=== PATIENT | female | born 1960 | race Caucasian/White ===

== ENCOUNTER 2016-09-08 03:50 | Emergency (ER) | payer SELFPAY ==
[2016-09-08 03:50] VITALS: BMI 28.3
--- NOTE | 2016-09-08 04:14 | ED PDOC ---
Arrival/HPI - General Time Seen by Provider: 09/08/16 04:10 Historian: Patient, Family (Daughter) - History of Present Illness Narrative History of Present Illness (Text): 09/08/16 04:13 Radha Cohen is a 56 year old female, whose past medical history includes colon cancer and colostomy with reversal, who presents to the Emergency department complaining of intermittent mid-sternal chest pain. Daughter states patient has also been experiencing associated lower abdominal discomfort/bloating and diarrhea for the past few months, but has worsened over the last few days. Patient denies any fever, chills, shortness of breath, nausea, vomiting, back pain, neck pain, headache, dizziness, or any other complaints. Symptom Onset: Gradual Symptom Course: Unchanged Activities at Onset: Light Context: Home Past Medical History - Provider Review Nursing Documentation Reviewed: Yes - Infectious Disease Hx of Infectious Diseases: None - Tetanus Immunization Tetanus Immunization: Unknown - Cardiac Hx Cardiac Disorders: No - Pulmonary Hx Respiratory Disorders: No - Neurological Hx Neurological Disorder: No - HEENT Hx HEENT Disorder: No - Renal Hx Renal Disorder: No - Endocrine/Metabolic Hx Hypothyroidism: Yes - Hematological/Oncological Hx Blood Disorders: No - Integumentary Hx Dermatological Disorder: No - Musculoskeletal/Rheumatological Hx Musculoskeletal Disorders: No - Gastrointestinal Hx Diverticulitis: Yes Other/Comment: Colostomy reversal - Genitourinary/Gynecological Hx Genitourinary Disorders: No - Psychiatric Hx Depression: No Hx Emotional Abuse: No Hx Physical Abuse: No Hx Substance Use: No - Surgical History Other/Comment: Colostomy reversal - Anesthesia Hx Anesthesia: Yes Hx Anesthesia Reactions: No Hx Malignant Hyperthermia: No - Suicidal Assessment Feels Threatened In Home Enviroment: No Family/Social History - Physician Review Nursing Documentation Reviewed: Yes Family/Social History: No Known Family HX Smoking Status: Never Smoked Hx Alcohol Use: No Hx Substance Use: No Hx Substance Use Treatment: No Allergies/Home Meds Allergies/Adverse Reactions: Allergies No Known Allergies Allergy (Verified 04/21/16 05:05) Home Medications: Home Meds Medication Instructions Recorded Confirmed Atropine/Diphenoxylate [Lomotil 1 tab PO QID 04/21/16 04/21/16 0.025-2.5 mg tablet] Levothyroxine [Levoxyl] 0.025 mg PO DAILY 04/21/16 04/21/16 Review of Systems - Physician Review All systems were reviewed & negative as marked: Yes - Review of Systems Constitutional: Normal. absent: Fevers Eyes: Normal ENT: Normal Respiratory: Normal Cardiovascular: Chest Pain Gastrointestinal: Abdominal Pain, Diarrhea Genitourinary Female: Normal Musculoskeletal: Normal. absent: Back Pain, Neck Pain Skin: Normal. absent: Rash Neurological: Normal. absent: Headache, Dizziness Endocrine: Normal Hemo/Lymphatic: Normal Psychiatric: Normal Physical Exam Vital Signs Reviewed: Yes Vital Signs Temp Pulse Resp BP Pulse Ox 09/08/16 06:02 98.6 F 75 16 117/66 100 Temperature: Afebrile Blood Pressure: Normal Pulse: Regular Respiratory Rate: Normal Appearance: Positive for: Well-Appearing, Non-Toxic, Comfortable Pain Distress: None Mental Status: Positive for: Alert and Oriented X 3 - Systems Exam Head: Present: Atraumatic, Normocephalic Pupils: Present: PERRL Extroacular Muscles: Present: EOMI Conjunctiva: Present: Normal Mouth: Present: Moist Mucous Membranes Neck: Present: Normal Range of Motion Respiratory/Chest: Present: Clear to Auscultation, Good Air Exchange. No: Respiratory Distress, Accessory Muscle Use Cardiovascular: Present: Regular Rate and Rhythm, Normal S1, S2. No: Murmurs Abdomen: Present: Tenderness (Lower abdominal discomfort), Normal Bowel Sounds. No: Distention, Peritoneal Signs Back: Present: Normal Inspection Upper Extremity: Present: Normal Inspection. No: Cyanosis, Edema Lower Extremity: Present: Normal Inspection. No: Edema Neurological: Present: GCS=15, CN II-XII Intact, Speech Normal Skin: Present: Warm, Dry, Normal Color. No: Rashes Psychiatric: Present: Alert, Oriented x 3, Normal Insight, Normal Concentration Medical Decision Making ED Course and Treatment: 09/08/16 04:14 Impression: 56 year old female complaining of chest pain, lower abdominal discomfort, and diarrhea. Plan: -- CT Abdomen and Pelvis with IV contrast -- EKG -- Chest X-ray -- Labs, cardiac enzymes -- Urinalysis -- Reassess and disposition Prior Visits: Notes and results from previous visits were reviewed. Progress Notes: Reviewed EKG, NSR at [address]-segment elevations or depressions, no T-wave inversions, normal intervals. 09/08/16 06:01 Reviewed Chest X-ray, shows no acute processes. 09/08/16 07:[address] Barnard, pending labs, CT scan, re-evaluation, and final disposition. - Lab Interpretations Lab Results: 09/08/16 05:52 09/08/16 05:52 Lab Results 09/08/16 05:52: WBC 6.3, RBC 4.32, Hgb 10.0 L, Hct 32.9 L, MCV 76.2 L, MCH 23.1 L, MCHC 30.4 L, RDW 15.0 H, Plt Count 357, MPV 9.3 09/08/16 05:52: Sodium 142, Potassium 3.8, Chloride 105, Carbon Dioxide 30, Anion Gap 11, BUN 11, Creatinine 0.7, Est GFR ( Amer) > 60, Est GFR (Non- Af Amer) > 60, Random Glucose 96, Calcium 9.4, Total Bilirubin 0.2, AST 29, ALT 33, Alkaline Phosphatase 56, Lactate Dehydrogenase 300 L, Total Creatine Kinase 55, Troponin I < 0.01, Total Protein 7.5, Albumin 3.8, Globulin 3.8, Albumin/ Globulin Ratio 1.0 L 09/08/16 05:52: PT 10.4, INR 0.96, APTT 27.5 09/08/16 04:17: Urine Color Yellow, Urine Appearance Clear, Urine pH 6.0, Ur Specific [place] 1.020, Urine Protein Trace H, Urine Glucose (UA) Negative, Urine Ketones Trace H, Urine Blood Negative, Urine Nitrate Negative, Urine Bilirubin Negative, Urine Urobilinogen 0.2, Ur Leukocyte Esterase Trace H, Urine RBC 0 - 2, Urine WBC 2 - 5, Ur Epithelial Cells 1 - 3, Urine Bacteria Rare - RAD Interpretation Radiology Orders: 09/08/16 04:16 CHEST PORTABLE [RAD] Stat 09/08/16 04:17 ABD & PELVIS IV CONTRAST ONLY [CT] Stat - Medication Orders Current Medication Orders: Discontinued Medications Iohexol (Omnipaque 350 100 Ml) Confirm Administered Dose 350 mg .ROUTE .STK-MED ONE Stop: 09/08/16 06:38 - Scribe Statement The provider has reviewed the documentation as recorded by the Scribe Dena Corbett All medical record entries made by the Scribe were at my direction and personally dictated by me. I have reviewed the chart and agree that the record accurately reflects my personal performance of the history, physical exam, medical decision making, and the department course for this patient. I have also personally directed, reviewed, and agree with the discharge instructions and disposition. Disposition/Present on Arrival - Present on Arrival Any Indicators Present on Arrival: No History of DVT/PE: No History of Uncontrolled Diabetes: No Urinary Catheter: No History Surgical Site Infection Following: None - Disposition Have Diagnosis and Disposition been Completed?: No Diagnosis: Chest pain, Abdominal pain Disposition Time: 07:00 Condition: STABLE Discharge Instructions (ExitCare): Chest Pain (ED)
[2016-09-08 04:57] LABS: URINE BILIRUBIN NEGATIVE (NEGATIVE); URINE BLOOD NEGATIVE (NEGATIVE); URINE GLUCOSE (UA) NEGATIVE (NEGATIVE); URINE KETONE TRACE mg/dL (NEGATIVE); URINE LEUKOCYTE ESTERASE TRACE Leu/uL (NEGATIVE); URINE PROTEIN TRACE mg/dL (<30 mg/dL); URINE UROBILINOGEN 0.2 E.U./dL (<1 E.U./dL)
[2016-09-08 04:58] LABS: URINE APPEARANCE CLEAR (CLEAR); URINE COLOR YELLOW (YELLOW)
[2016-09-08 05:11] LABS: URINE BACTERIA RARE (NEG); URINE RBC 0 - 2 /hpf (0-2)
[2016-09-08 06:04] VITALS: TEMP 98.6
[2016-09-08 06:14] LABS: INR 0.96 (0.93-1.08); PARTIAL THROMBOPLASTIN TIME 27.5 Seconds (23.7-30.8)
[2016-09-08 06:16] LABS: HEMATOCRIT 32.9 % (36.0-48.0); MEAN CELL VOLUME 76.2 fL (80.0-105.0); MEAN CORPUSCULAR HEMOGLOBIN 23.1 pg (25.0-35.0); MEAN CORPUSCULAR HGB CONC 30.4 g/dl (31.0-37.0); MEAN PLATELET VOLUME 9.3 fl (7.0-11.0); WHITE BLOOD COUNT 6.3 10^3/ul (4.5-11.0)
[2016-09-08 06:20] LABS: ALKALINE PHOSPHATASE 56 U/L (38-133); ALT/SGPT 33 U/L (7-56); AST/SGOT 29 U/L (15-39); BILIRUBIN,TOTAL 0.2 mg/dL (0.2-1.3); BLOOD UREA NITROGEN 11 mg/dL (7-21); CALCIUM 9.4 mg/dL (8.4-10.5); CARBON DIOXIDE 30 mmol/L (21-33); CHLORIDE 105 mmol/L (98-107); GFR AFRICAN-AMERICAN > 60; GLUCOSE,RANDOM 96 mg/dL (70-110); POTASSIUM 3.8 mmol/L (3.6-5.0); SODIUM 142 mmol/L (132-148); TOTAL PROTEIN 7.5 g/dL (5.8-8.3)
[2016-09-08] MEDS ORDERED: Iohexol 350 MG/100 ML VIAL ONE (06:37)
[2016-09-08 06:43] LABS: TROPONIN I < 0.01 ng/mL
[2016-09-08] MEDS ORDERED: Morphine 2 mg/ml ISec IVP STA (06:50)
[2016-09-08] MEDS ORDERED: Sodium Chloride 0.9% 1,000 ML IV SCH (07:00)
[2016-09-08 07:55] VITALS: RESP 18
--- NOTE | 2016-09-08 08:29 | CT ---
PROCEDURE: CT Abdomen and Pelvis with contrast HISTORY: Lower abdominal pain COMPARISON: None. TECHNIQUE: CT scan of the abdomen and pelvis was performed after intravenous administration of contrast. Oral contrast was not administered. Coronal and sagittal reformatted images were obtained. Contrast dose: 100 mL Omnipaque 350 Radiation dose: Total exam DLP = 1125.44 mGy-cm. This CT exam was performed using one or more of the following dose reduction techniques: Automated exposure control, adjustment of the mA and/or kV according to patient size, and/or use of iterative reconstruction technique. FINDINGS: LOWER THORAX: There is linear atelectasis/scarring in the inferior right middle lobe, lingula, and lateral right lung base. The posterior lung bases are clear. LIVER: The liver is normal in size and there is homogeneous enhancement without intrahepatic biliary ductal dilatation. No focal mass. GALLBLADDER AND BILE DUCTS: The gallbladder is contracted. No calcified gallstones. PANCREAS: The pancreas is normal in size and there is homogeneous enhancement without ductal dilatation. SPLEEN: The spleen is normal in size and there is homogeneous enhancement without focal mass. ADRENALS: The right adrenal gland is normal in size without discrete nodule. There is mild thickening of the left adrenal gland. No discrete nodule. KIDNEYS AND URETERS: Both kidneys are normal in size and there is homogeneous enhancement without hydronephrosis or focal mass. VASCULATURE: No aortic aneurysm. BOWEL: The patient is status post subtotal colectomy. There are a running sutures in moderately distended bowel loops in the left lower quadrant and right hemipelvis with fecal retention. There is also fecal retention in the rectum and a running suture at the rectosigmoid junction. The small bowel loops are normal in caliber. APPENDIX: Surgically absent. PERITONEUM: No free fluid. No free air. LYMPH NODES: No enlarged lymph nodes. BLADDER: Unremarkable. REPRODUCTIVE: Unremarkable. BONES: No acute fracture. OTHER FINDINGS: None. IMPRESSION: Status post subtotal colectomy, postsurgical changes in the bowel and moderate distention of bowel loops in the left lower quadrant and right hemipelvis with fecal retention as well as fecal retention in the rectum. These bowel loops likely represent residual: . Small bowel loops are normal in caliber. No evidence of small bowel bowel obstruction.
--- NOTE | 2016-09-08 08:52 | ED PDOC ---
Physical Exam Vital Signs Temp Pulse Resp BP Pulse Ox 09/08/16 07:54 71 18 118/82 100 09/08/16 06:02 98.6 F 75 16 117/66 100 Medical Decision Making ED Course and Treatment: 09/08/16 07:00 Case signed out to me by Dr. Roland pending labs, CT scan, re-evaluation, and final disposition. PROCEDURE: CT Abdomen and Pelvis with contrast [employer]nc Field Service Engineer : Barby Ramey MD Report Date : 09/08/2016 08:27:40 IMPRESSION: Status post subtotal colectomy, postsurgical changes in the bowel and moderate distention of bowel loops in the left lower quadrant and right hemipelvis with fecal retention as well as fecal retention in the rectum. These bowel loops likely represent residual: . Small bowel loops are normal in caliber. No evidence of small bowel bowel obstruction. 09/08/16 08:47 Patient reassessed. She states she feels well. Offered patient observation for chest pain, but patient declined. CT shows fecal retention. Patient states she was on Lomotil by PMD. Advised to discontinue it. Instructed patient to follow up outpatient. - Lab Interpretations Lab Results: 09/08/16 05:52 09/08/16 05:52 Lab Results 09/08/16 05:52: WBC 6.3, RBC 4.32, Hgb 10.0 L, Hct 32.9 L, MCV 76.2 L, MCH 23.1 L, MCHC 30.4 L, RDW 15.0 H, Plt Count 357, MPV 9.3 09/08/16 05:52: Sodium 142, Potassium 3.8, Chloride 105, Carbon Dioxide 30, Anion Gap 11, BUN 11, Creatinine 0.7, Est GFR ( Amer) > 60, Est GFR (Non- Af Amer) > 60, Random Glucose 96, Calcium 9.4, Total Bilirubin 0.2, AST 29, ALT 33, Alkaline Phosphatase 56, Lactate Dehydrogenase 300 L, Total Creatine Kinase 55, Troponin I < 0.01, Total Protein 7.5, Albumin 3.8, Globulin 3.8, Albumin/ Globulin Ratio 1.0 L 09/08/16 05:52: PT 10.4, INR 0.96, APTT 27.5 09/08/16 04:17: Urine Color Yellow, Urine Appearance Clear, Urine pH 6.0, Ur Specific [place] 1.020, Urine Protein Trace H, Urine Glucose (UA) Negative, Urine Ketones Trace H, Urine Blood Negative, Urine Nitrate Negative, Urine Bilirubin Negative, Urine Urobilinogen 0.2, Ur Leukocyte Esterase Trace H, Urine RBC 0 - 2, Urine WBC 2 - 5, Ur Epithelial Cells 1 - 3, Urine Bacteria Rare - RAD Interpretation Radiology Orders: 09/08/16 04:16 CHEST PORTABLE [RAD] Stat 09/08/16 04:17 ABD & PELVIS IV CONTRAST ONLY [CT] Stat Faculty Administrator: Radiologist - Medication Orders Current Medication Orders: Sodium Chloride (Sodium Chloride 0.9%) 1,000 mls @ 100 mls/hr IV .Q10H GIOVANNA Last Admin: 09/08/16 08:15 Dose: 100 mls/hr Discontinued Medications Iohexol (Omnipaque 350 100 Ml) Confirm Administered Dose 350 mg .ROUTE .STK-MED ONE Stop: 09/08/16 06:38 Morphine Sulfate (Morphine) 2 mg IVP STAT STA Stop: 09/08/16 06:51 Last Admin: 09/08/16 08:15 Dose: 2 mg Disposition/Present on Arrival - Present on Arrival Any Indicators Present on Arrival: No History of DVT/PE: No History of Uncontrolled Diabetes: No Urinary Catheter: No History of Decub. Ulcer: No History Surgical Site Infection Following: None - Disposition Have Diagnosis and Disposition been Completed?: Yes Diagnosis: Chest pain, Abdominal pain Disposition: HOME/ ROUTINE Disposition Time: 09:30 Condition: STABLE Discharge Instructions (ExitCare): Chest Pain (ED), Acute Abdominal Pain (ED) Additional Instructions: please follow up with your doctor. return to er with worsening symptoms or concerns. Referrals: Nithya Doherty MD [Staff Provider] - Follow up with primary Franck Javed MD [Staff Provider] - Follow up with primary
[2016-09-08 09:13] VITALS: BP 127/76; PULSE 67; O2SAT 99
--- NOTE | 2016-09-08 09:50 | RAD ---
HISTORY: pain COMPARISON: No prior. FINDINGS: LUNGS: The lungs are well inflated and clear. PLEURA: No significant pleural effusion identified, no pneumothorax apparent. CARDIOVASCULAR: Normal. OSSEOUS STRUCTURES: No significant abnormalities. VISUALIZED UPPER ABDOMEN: Normal. OTHER FINDINGS: None. IMPRESSION: No active pulmonary disease.
--- NOTE | 2016-09-09 18:03 | CARD ---
APPROVED REPORT EKG Measurement Heart [id number] <Conclusion> Normal sinus rhythm Normal ECG
--- NOTE | 2016-09-09 18:03 | CARD ---
APPROVED REPORT EKG Measurement Heart [id number] <Conclusion> Normal sinus rhythm Normal ECG
== END 2016-09-08 09:13 | disposition home or self-care (01) ==
LOC: ED 03:50
DX: R07.9 Chest pain, unspecified (principal); R10.9 Unspecified abdominal pain; Z85.038 Personal history of other malignant neoplasm of large intestine; Z93.3 Colostomy status
CPT/HCPCS: 71010; 74177; 80053; 81001; 82550; 83615; 84484; 85027; 85610; 85730; 87086; 93005; 96374; 99284; J2270; J7040; Q9967

== ENCOUNTER 2017-09-19 12:41 | Emergency (ER) | payer OTHER ==
[2017-09-19 12:42] VITALS: BMI 28.3
[2017-09-19 12:58] VITALS: TEMP 98.8
[2017-09-19] MEDS ORDERED: Oxycodone/Acetaminophen 5/325 mg Tab PO STA (13:02)
[2017-09-19] MEDS ORDERED: TDAP Vaccine 0.5 mL Syr IM ONE (13:02)
--- NOTE | 2017-09-19 13:11 | ED PDOC ---
Arrival/HPI - General Chief Complaint: Trauma Time Seen by Provider: 09/19/17 13:00 Historian: Patient, Family (daughter at bedside, translating) EM Caveat: Language Barrier - History of Present Illness Narrative History of Present Illness (Text): 09/19/17 13:06 pt p/w + accidental trip and fall earlier this morning, prior to Emergency department arrival; pt states no LOC pre/post fall, + severe left arm/leg pain post fall; pt states she felt dizzy after she fell, pt was able to stand up with assistance; pt is able to stand and walk after she fell; pt states she cant move her left arm due to severe pain; pt states no fever/chills/sweats, no cp/sob/palpitations, no abd pain, no n/v, no numbness/tingling, no urinary/ bowel changes, no gross bleeding, no sick contact, no travel; pt is here for further eval; pt's without other complaints. PCP: [place] pt is right hand dominate tetanus immunization: unknown Time/Duration: Prior to Arrival Symptom Onset: Sudden Quality: Tightness, Cramping Severity Level: Severe Activities at Onset: Other (walking on the street) Context: Walking Past Medical History - Provider Review Nursing Documentation Reviewed: Yes - Travel History Have you recently traveled outside [place] w/in the past 3 mons?: No - Past History Past History: Non-Contributing - Infectious Disease Hx of Infectious Diseases: None - Tetanus Immunization Tetanus Immunization: Unknown - Reproductive Menopause: Yes Currently : No - Cardiac Hx Cardiac Disorders: No - Pulmonary Hx Respiratory Disorders: No - Neurological Hx Neurological Disorder: No - HEENT Hx HEENT Disorder: No - Renal Hx Renal Disorder: No - Endocrine/Metabolic Hx Hypothyroidism: Yes - Hematological/Oncological Hx Blood Disorders: No - Integumentary Hx Dermatological Disorder: No - Musculoskeletal/Rheumatological Hx Musculoskeletal Disorders: No - Gastrointestinal Hx Diverticulitis: Yes Other/Comment: Colostomy reversal - Genitourinary/Gynecological Hx Genitourinary Disorders: No - Psychiatric Hx Depression: No Hx Emotional Abuse: No Hx Physical Abuse: No Hx Substance Use: No - Surgical History Other/Comment: Colostomy reversal - Anesthesia Hx Anesthesia: Yes Hx Anesthesia Reactions: No Hx Malignant Hyperthermia: No - Suicidal Assessment Feels Threatened In Home Enviroment: No Family/Social History - Physician Review Nursing Documentation Reviewed: Yes Family/Social History: No Known Family HX Smoking Status: Never Smoked Hx Alcohol Use: No Hx Substance Use: No Hx Substance Use Treatment: No Allergies/Home Meds Allergies/Adverse Reactions: Allergies No Known Allergies Allergy (Verified 09/19/17 12:50) Home Medications: Home Meds Medication Instructions Recorded Confirmed Atropine/Diphenoxylate [Lomotil 1 tab PO QID 04/21/16 04/21/16 0.025-2.5 mg tablet] Levothyroxine [Levoxyl] 0.025 mg PO DAILY 04/21/16 04/21/16 Review of Systems - Review of Systems Constitutional: Normal Eyes: Normal ENT: Normal Respiratory: Normal Cardiovascular: Normal Gastrointestinal: Normal Genitourinary Female: Normal Musculoskeletal: Other (left shoulder/arm pain). absent: Arthralgias, Back Pain , Neck Pain, Joint Swelling Skin: Normal Neurological: Normal. absent: Headache Endocrine: Normal Hemo/Lymphatic: Normal Psychiatric: Normal Physical Exam - Physical Exam Narrative Physical Exam (Text): 09/19/17 13:12 General: alert/awake, GCS = 15, oriented x 3, resting in bed, uncomfortable, cooperative, interactive; mild-moderate distress due to pain Head: NC/AT EYE: PERRLA, EOMI, sclera anicteric, no nystagmus, no photophobia; visual field intact b/l Facial: WNL Oral: uvula/tongue are midline, no exudate/lesions, no drooling/stridor, no dysphonia; fair dentitions, moist oral mucosa NECK: intact ROM, no midline tenderness, no nuchal rigidity, no meningeal signs ; no step off; no gross deformities Chest: CTA b/l, no w/r/r; no tachypenia, no accessory muscle use noted Cardiac: +S1, +S2, no m/r/r, no tachycardia Abdominal: +BS, soft/nd/nt, well nourished/obese patient; no masses/rebound/ guarding/rigidity; no contreras's sign, no mcburney's point tenderness Extremities: decr ROM to left arm/shoulder, intact ROM to rest of the limbs, strength 5/5 grossly intact in all limbs, neurovasc intact b/l; + ambulatory; reflex +2/2; no gross swelling/pitting edema noted b/l, + left lateral anterior knee skin abrasions noted 0.5cmx0.5cm, no gross bleeding noted, no lacerations noted BACK: no step off, no midline tenderness, NO crepitus, no gross deformities noted; Intact ROM SKIN: cap refill < 1 sec, no ulcerations, no petechiae, no rashes; no gross pallor noted; as described above skin abrasion to left anterior lateral knee NEURO: CNII-XII WNL, no facial asymmetries, no slurr speech, oriented x 3 NIH stroke scale ~ 0 Psych: normal insight, normal affect; follows command with ease Vital Signs Reviewed: Yes Vital Signs Temp Pulse Resp BP Pulse Ox 09/19/17 12:53 98.8 F 78 17 120/65 98 Temperature: Afebrile Blood Pressure: Normal Pulse: Regular Respiratory Rate: Normal Appearance: Positive for: Well-Appearing, Uncomfortable. No: Non-Toxic, Comfortable, Ill-Appearing Pain Distress: Moderate Mental Status: Positive for: Alert and Oriented X 3 - Systems Exam Head: Present: Atraumatic, Normocephalic Medical Decision Making ED Course and Treatment: 09/19/17 13:04 Impression: fall, left arm pain, left knee pain, left chest wall pain i have consider all the differential diagnosis regarding pt's chief medical complaints/clinical findings, including but are not limited to: r/o fx A/P: fall, left arm/leg/chest pain - xray - RICE txt - sling - supportive care - observe/reevaluation 09/19/17 14:15 pt is resting in bed, NAD pt remained somewhat uncomfortable [address] Sahni, correctional case records supervisor ortho, would like CT upper left shoulder prior to d/c would like RICE precautions and Sling for patient pt can follow up on thursday in his office 09/19/17 15:51 pt remained comfortable NAD pt/family are made aware of her medical results RICE txt is recommended pt is encouraged wearing the left shoulder sling, no heavy lifting pt will f/u with Dr Sahni on thursday pt is encouraged outpt f/u pt will be discharged home Re-evaluation Time: 14:15 Reassessment Condition: Improving,but remains with symptoms - RAD Interpretation Narrative RAD Interpretations (Text): 09/19/17 14:31 PROCEDURE: Radiographs of the Left Shoulder HISTORY: fall, left shoulder/arm pain COMPARISON: No prior. FINDINGS: BONES: Impacted and comminuted fracture at the junction of the left humeral head and neck. Likely avulsion of the greater tuberosity. JOINTS: Normal. Glenohumeral and acromioclavicular joints preserved. No osteoarthritis. SOFT TISSUES: Normal. OTHER FINDINGS: None. IMPRESSION: Acute, impacted and comminuted fracture junction of the left humeral head and neck. HISTORY: fall, left chest wall ache COMPARISON: 09/08/2016 TECHNIQUE: Chest PA and lateral FINDINGS: LUNGS: No active pulmonary disease. PLEURA: No significant pleural effusion identified. No pneumothorax apparent. CARDIOVASCULAR: Normal. OSSEOUS STRUCTURES: Impacted fracture proximal left humerus. VISUALIZED UPPER ABDOMEN: Normal. OTHER FINDINGS: None. IMPRESSION: No active pulmonary disease. Proximal right humeral fracture incompletely visualized finding. PROCEDURE: Radiographs of the left humerus. HISTORY: left arm pain COMPARISON: September 19, 2017. FINDINGS: BONES: Known fracture proximal left humerus. No additional common distal abnormalities identified. SOFT TISSUES: Soft tissue swelling attests to the acuity of the fracture. OTHER FINDINGS: None. IMPRESSION: Fracture proximal left humerus. No other significant findings. Concordant results with the preliminary interpretation rendered by the emergency department physician\PA at the conclusion of the procedure. PROCEDURE: Left Knee Radiographs. HISTORY: Pain. COMPARISON: None. FINDINGS: BONES: No acute fracture. Proliferative hypertrophic changes emanating from the femoral condyle and tibial plateau regions. JOINTS: Degenerative changes primarily affecting medial compartment. JOINT EFFUSION: None. OTHER FINDINGS: None. IMPRESSION: No acute findings related to/accounting for the clinical presentation. Concordant results with the preliminary interpretation rendered by the emergency department physicianAZUCENA at the conclusion of the procedure. 09/19/17 15:51 PROCEDURE: CT left upper extremity HISTORY: Known proximal humeral fracture COMPARISON: September 19, 2017. TECHNIQUE: 2.5 mm axial acquisition and display. Coronal and sagittal reconstructions. Dose report (mGy-cm): 353.54 FINDINGS: Impacted fracture affecting the humeral head and neck. There is an intra-articular component. Avulsed greater tuberosity identified. Preservation of glenohumeral relationship. No abnormalities with respect to the clavicle. No acromioclavicular abnormalities detected. No scapular or rib abnormalities identified. Soft tissue swelling without acute articular or osseous abnormality. IMPRESSION: Acute comminuted and impacted fracture left humeral head and neck. Intra- articular component noted. The fracture extends to and involves the greater tuberosity. No evidence of glenohumeral or acromioclavicular abnormalities. Radiology Orders: 09/19/17 13:00 SHOULDER LEFT [RAD] Stat 09/19/17 13:01 HUMERUS LEFT [RAD] Stat KNEE LEFT 2 VIEWS (AP & LAT) [RAD] Stat 09/19/17 13:02 CHEST TWO VIEWS (PA/LAT) [RAD] Stat 09/19/17 14:43 EXT UPPER W/O CONTRAST LEFT [CT] Stat Travel Agent: Radiologist - Medication Orders Current Medication Orders: Discontinued Medications Diazepam (Valium) 5 mg PO ONCE ONE PRN Reason: Protocol Stop: 09/19/17 13:03 Last Admin: 09/19/17 13:29 Dose: 5 mg Ketorolac Tromethamine (Toradol) 30 mg IM STAT STA Stop: 09/19/17 13:04 Last Admin: 09/19/17 13:29 Dose: 30 mg MAR Pain Assessment Document 09/19/17 13:29 EWO (Rec: 09/19/17 13:29 EWO [id number]) Pain Reassessment Is this a pain reassessment? No IM Administration Charges Document 09/19/17 13:29 EWO (Rec: 09/19/17 13:29 EWO [id number]) Charges for Administration # of IM Administrations 1 Oxycodone/Acetaminophen (Percocet 5/325 Mg Tab) 1 tab PO STAT STA Stop: 09/19/17 13:03 Last Admin: 09/19/17 13:29 Dose: 1 tab MAR Pain Assessment Document 09/19/17 13:29 EWO (Rec: 09/19/17 13:29 EWO [id number]) Pain Reassessment Is this a pain reassessment? No Tetanus/Reduced Diphtheria/Acell Pertussis (Boostrix Vaccine Inj) 0.5 ml IM .ONCE ONE Stop: 09/19/17 13:03 Last Admin: 09/19/17 13:28 Dose: 0.5 ml Immunization Registry Document 09/19/17 13:28 EWO (Rec: 09/19/17 13:28 EWO [id number]) Immunization Registry Consent Date 09/19/17 Disposition/Present on Arrival - Present on Arrival Any Indicators Present on Arrival: No History of DVT/PE: No History of Uncontrolled Diabetes: No Urinary Catheter: No History of Decub. Ulcer: No History Surgical Site Infection Following: None - Disposition Have Diagnosis and Disposition been Completed?: Yes Diagnosis: Proximal humeral fracture, Fall, Musculoskeletal pain, Contusion, Abrasion Disposition: HOME/ ROUTINE Disposition Time: 14:33 Patient Plan: Discharge Patient Problems: Current Active Problems Problem Status Onset Proximal humeral fracture Acute Fall Acute Musculoskeletal pain Acute Contusion Acute Abrasion Acute Condition: STABLE Discharge Instructions (ExitCare): Preventing Falls in the Older Adult, Muscle and Bone Pain (DC), Contusion (DC), Upper Arm Fracture Print Language: ZAMBIAN Additional Instructions: Make sure to see your doctor in 1-2 days DRINK PLENTY OF FLUIDS REST your arm, ICE your shoulder/arm 15min/hr over the next 1-2 days keep your arm in sling for comfort take your medications as prescribed RETURN TO ED IF worse pain, cant breath, persistent vomiting, high fever >101- 102 for hours, altered behavior, slurr speech, facial changes, focal weakness ( arm/leg or both), unable to urinate, heavy/persistent bleeding, passing out, chest pain, or other medical emergencies Prescriptions: diaZEpam [Valium] 5 mg PO TID PRN #10 tab PRN Reason: Muscle Spasm Ibuprofen [Motrin] 600 mg PO QID PRN #30 tab PRN Reason: Pain, Mild (1-3) oxyCODONE/Acetaminophen [Percocet 5/325 mg Tab] 1 ea PO TID PRN #12 tab PRN Reason: Pain, Moderate (4-7) Referrals: Hoa Rodriguez MD [Primary Care Provider] - Follow up with primary Kelechi Sahni MD [Staff Provider] - Follow up with primary [facility] [Outside] - Follow up with primary [facility] [Outside] - Follow up with primary [facility] [place]] - Follow up with primary Forms: [facility] (Al[place]ian)
--- NOTE | 2017-09-19 14:26 | RAD ---
HISTORY: fall, left chest wall ache COMPARISON: 09/08/2016 TECHNIQUE: Chest PA and lateral FINDINGS: LUNGS: No active pulmonary disease. PLEURA: No significant pleural effusion identified. No pneumothorax apparent. CARDIOVASCULAR: Normal. OSSEOUS STRUCTURES: Impacted fracture proximal left humerus. VISUALIZED UPPER ABDOMEN: Normal. OTHER FINDINGS: None. IMPRESSION: No active pulmonary disease. Proximal right humeral fracture incompletely visualized finding.
--- NOTE | 2017-09-19 14:27 | RAD ---
PROCEDURE: Radiographs of the Left Shoulder HISTORY: fall, left shoulder/arm pain COMPARISON: No prior. FINDINGS: BONES: Impacted and comminuted fracture at the junction of the left humeral head and neck. Likely avulsion of the greater tuberosity. JOINTS: Normal. Glenohumeral and acromioclavicular joints preserved. No osteoarthritis. SOFT TISSUES: Normal. OTHER FINDINGS: None. IMPRESSION: Acute, impacted and comminuted fracture junction of the left humeral head and neck.
--- NOTE | 2017-09-19 14:28 | RAD ---
PROCEDURE: Radiographs of the left humerus. HISTORY: left arm pain COMPARISON: September 19, 2017. FINDINGS: BONES: Known fracture proximal left humerus. No additional common distal abnormalities identified. SOFT TISSUES: Soft tissue swelling attests to the acuity of the fracture. OTHER FINDINGS: None. IMPRESSION: Fracture proximal left humerus. No other significant findings. Concordant results with the preliminary interpretation rendered by the emergency department physician procedure.
--- NOTE | 2017-09-19 14:29 | RAD ---
PROCEDURE: Left Knee Radiographs. HISTORY: Pain. COMPARISON: None. FINDINGS: BONES: No acute fracture. Proliferative hypertrophic changes emanating from the femoral condyle and tibial plateau regions. JOINTS: Degenerative changes primarily affecting medial compartment. JOINT EFFUSION: None. OTHER FINDINGS: None. IMPRESSION: No acute findings related to/accounting for the clinical presentation. Concordant results with the preliminary interpretation rendered by the emergency department physician procedure.
--- NOTE | 2017-09-19 15:44 | CT ---
PROCEDURE: CT left upper extremity HISTORY: Known proximal humeral fracture COMPARISON: September 19, 2017. TECHNIQUE: 2.5 mm axial acquisition and display. Coronal and sagittal reconstructions. Dose report (mGy-cm): 353.54 FINDINGS: Impacted fracture affecting the humeral head and neck. There is an intra-articular component. Avulsed greater tuberosity identified. Preservation of glenohumeral relationship. No abnormalities with respect to the clavicle. No acromioclavicular abnormalities detected. No scapular or rib abnormalities identified. Soft tissue swelling without acute articular or osseous abnormality. IMPRESSION: Acute comminuted and impacted fracture left humeral head and neck. Intra-articular component noted. The fracture extends to and involves the greater tuberosity. No evidence of glenohumeral or acromioclavicular abnormalities.
[2017-09-19 15:59] VITALS: RESP 18; O2SAT 99
[2017-09-19 16:01] VITALS: BP 129/77; PULSE 72
== END 2017-09-19 16:00 | disposition home or self-care (01) ==
LOC: ED 12:41
DX: S42.252A Displaced fracture of greater tuberosity of left humerus, initial encounter for closed fracture (principal); T14.8XXA Other injury of unspecified body region, initial encounter; S80.212A Abrasion, left knee, initial encounter; W01.0XXA Fall on same level from slipping, tripping and stumbling without subsequent striking against object, initial encounter; M79.1 Myalgia; Z23 Encounter for immunization; E03.9 Hypothyroidism, unspecified
CPT/HCPCS: 71046; 73030; 73060; 73200; 73560; 90471; 90715; 96372; 99283; J1885